=== PATIENT | female | born 1995 | race Caucasian/White ===

== ENCOUNTER 2016-08-15 20:16 | Emergency (ER) | payer OTHER ==
[~2016-08-15] VITALS: Ht 154.9 cm; Wt 50.0 kg
[2016-08-15 20:21] VITALS: TEMP 99.6
[2016-08-15 21:18] LABS: BASO # 0.1 (0.0-0.2); BASO % 0.5 % (0.0-2.0); EOS # 0.1 (0.0-0.7); GRAN # 7.9 (1.4-6.5); GRAN % 74.1 % (42.2-75.2); HEMATOCRIT 38.7 % (37.0-47.0); HEMOGLOBIN 13.3 g/dl (12.5-16.0); LYMPH # 1.8 (1.2-3.4); LYMPH % 16.9 % (20.0-51.0); MEAN CELL VOLUME 85 fl (80.0-100.0); MEAN CORPUSCULAR HEMOGLOBIN 29 pg (27.0-31.0); MEAN CORPUSCULAR HGB CONC 34 g/dl (33.0-37.0); MEAN PLATELET VOLUME 9.8 fl (7.4-10.4); MONO # 0.8 (0.1-0.6); MONO % 7.3 % (1.7-9.3); PLATELET COUNT 310 K/mm3 (130-400); RED BLOOD COUNT 4.54 M/mm3 (4.10-5.30); WHITE BLOOD COUNT 10.7 K/mm3 (4.8-10.8)
[2016-08-15 21:30] LABS: ADJUSTED CALCIUM 9.8 mg/dL (8.4-10.2); ALBUMIN 4.7 gm/dL (3.5-5.0); BILIRUBIN,TOTAL 0.7 mg/dL (0.0-1.0); CALCIUM 10.4 mg/dL (8.4-10.2); CREATININE, serum 0.67 mg/dL (0.52-1.25); POTASSIUM 4.1 mmol/L (3.4-5.0)
[2016-08-15 22:41] VITALS: BP 108/69; PULSE 78
== END 2016-08-15 22:41 | disposition home or self-care (01) ==
LOC: COL.ER 20:16
PROVIDERS: Nurse Practitioner
DX: R07.9 Chest pain, unspecified (principal)
CPT/HCPCS: J1885

== ENCOUNTER → 2016-08-24 | Outpatient (CLI) | payer OTHER ==
[~2016-08-24] MED LIST: PRENATAL; VENTOLIN0.09 MG IH
== END ==
LOC: COL.RAD 17:29
DX: R06.02 Shortness of breath (principal)
CPT/HCPCS: Q9967

== ENCOUNTER → 2016-11-09 | Outpatient (CLI) | payer OTHER | LOC: COL.PUL 10:00 | DX: R06.02 Shortness of breath (principal); R94.2 Abnormal results of pulmonary function studies | CPT/HCPCS: J7674 ==

== ENCOUNTER 2017-02-14 21:12 | Emergency (ER) | payer OTHER ==
[~2017-02-14] VITALS: Ht 154.9 cm; Wt 50.0 kg
[2017-02-14 21:16] VITALS: TEMP 98.1
[2017-02-14] MEDS ORDERED: VENTOLIN0.09 MG IH (21:19)
[2017-02-14] MEDS ORDERED: PRENATAL (21:19)
[2017-02-14 21:45] LABS: PH 7 (5-8); URINE APPEARANCE Clear; URINE BACTERIA None Seen /hpf; URINE BILIRUBIN Negative (NEGATIVE); URINE BLOOD 1+ (NEGATIVE); URINE COLOR Straw; URINE GLUCOSE Negative (NEGATIVE); URINE KETONE Negative (NEGATIVE); URINE RBC 0-2 /hpf; URINE UROBILINOGEN Negative (NEGATIVE); URINE WBC 0-2 /hpf
[2017-02-15 00:04] VITALS: BP 107/67; PULSE 75
[2017-02-15 00:40] LABS: CHLAMYDIA/TRACH by PCR Female NOT DETECTED; NEISSERIA GON by PCR Female NOT DETECTED
== END 2017-02-15 00:04 | disposition home or self-care (01) ==
LOC: COL.ER 21:12
PROVIDERS: Nurse Practitioner
DX: O20.0 Threatened abortion (principal); O99.511 Diseases of the respiratory system complicating pregnancy, first trimester; J45.909 Unspecified asthma, uncomplicated; Z3A.01 Less than 8 weeks gestation of pregnancy

== ENCOUNTER → 2017-02-19 | Outpatient (CLI) | payer OTHER | LOC: MHCPAIN 08:07 | DX: G89.29 Other chronic pain (principal); M54.16 Radiculopathy, lumbar region | CPT/HCPCS: G0463 ==